=== PATIENT | male | born 1950 | race Caucasian/White ===

== ENCOUNTER 2021-01-02 22:07 | Emergency (ER) | payer OTHER ==
[~2021-01-02] VITALS: Ht 170.2 cm; Wt 90.9 kg
--- NOTE | 2021-01-02 22:10 | NUR ---
PT BIB [facility] FROM THE [employer] [facility] WHERE HE WAS GAMBLING AND DRINKING WITH HIS SON (ON A TRIP FROM [facility]), WHEN PT FELL OVER AND WAS UNRESPONSIVE. NO HEAD OR OTHER TRAUMA. PT BECAME RESPONSIVE UPON EMS ARRIVAL. PER SON, PT HAD 4 DRINKS TOTAL, STARTING IN THE AFTERNOON, AND "IT'S NOT MORE THAN HE WOULD NORMALLY HAVE". PT HAS HX HTN & DM. SON CONCERNED ABOUT POSSIBLE CARDIAC ETIOLOGY D/T FAMILY HX OF CARDIAC EVENTS. VSS PER EMS, EKG UNREMARKABLE, NO BLOOD SUGAR OBTAINED. PT ARRIVES TO ED A&OX3, INTOXICATED, VOMITING. C/O L ARM/SHOULDER PAIN X A COUPLE WEEKS.
[2021-01-02] MEDS ORDERED: ONDANSETRON 2MG/ML, 2ML ONE (22:26)
[2021-01-02] MEDS ORDERED: SODIUM CHLORIDE FLUSH 10ML SYR IVF ONE (22:30)
[2021-01-02] MEDS ORDERED: PLEASE ENTER ALLERGIES MC SCH (22:30)
[2021-01-02] MEDS ORDERED: ONDANSETRON 2MG/ML, 2ML IVPush ONE (22:30)
[2021-01-02] MEDS ORDERED: SODIUM CHLORIDE 0.9% 1,000ML IVBOLUS ONE (22:30)
[2021-01-02 22:38] LABS: BASOPHILS % (AUTO) 1 % (0-1); EOSINOPHILS % (AUTO) 4 % (1-7); LYMPHOCYTES % (AUTO) 29 % (22-44); MEAN CORPUSCULAR HEMOGLOBIN 26.6 pg (27.5-34.5); MEAN CORPUSCULAR HGB CONC 33.9 g/dL (33.2-36.2); MEAN PLATELET VOLUME 9.2 fL (7.4-10.4); MONOCYTES % (AUTO) 7 % (2-9); NEUTROPHILS % (AUTO) 60 % (42-75); PLATELET COUNT 213 x10^3/uL (130-400); RED BLOOD COUNT 5.62 x10^6/uL (4.38-5.82); RED CELL DISTRIBUTION WIDTH 13.8 % (9.4-14.8)
[2021-01-02 22:41] LABS: MD NO
[2021-01-02 22:49] LABS: ALANINE AMINOTRANSFERASE 32 U/L (12-78); ALBUMIN 4.5 g/dL (3.4-5.0); ANION GAP 14 mmol/L (5-15); CALCIUM 8.6 mg/dL (8.5-10.1); CHLORIDE 109 mmol/L (98-107); CREATININE 1.01 mg/dL (0.7-1.3)
[2021-01-02 22:53] LABS: ALKALINE PHOSPHATASE 108 U/L (45-117); BILIRUBIN,TOTAL 0.5 mg/dL (0.2-1.0); TOTAL PROTEIN 7.7 g/dL (6.4-8.2); TROPONIN I < 0.015 ng/mL (0.000-0.045)
[2021-01-02] MEDS ORDERED: PROMETHAZINE 25 MG/ML, 1ML IM ONE (23:00)
--- NOTE | 2021-01-02 23:20 | NUR ---
ERP WAS IN FOR RECHECK. PT AND SON [facility]
[2021-01-02] MEDS ORDERED: POTASSIUM CHLORIDE 20 MEQ TAB.ER.PRT PO ONE (23:30)
--- NOTE | 2021-01-02 23:30 | NUR ---
PT STOOD AT SIDE OF BED AND VOIDED IN URINAL WITH STAND BY ASSIST FROM SON.
[2021-01-02] MEDS ORDERED: POTASSIUM CHLORIDE 20 MEQ TAB.ER.PRT ONE (23:41)
[2021-01-02] MEDS ORDERED: PROMETHAZINE 25 MG/ML, 1ML ONE (23:41)
[2021-01-02 23:48] VITALS: BP 110/75
--- NOTE | 2021-01-02 23:50 | NUR ---
PT TOOK PO POTASSIUM WITH WATER WITHOUT DIFFICULTY. WILL LET REST OF IV BOLUS INFUSE, THEN DISCHARGE PT. SON REMAINS AT BS. PT UNDERSTANDS POC. Addendum: 01/02/21 at 2351 by HBENSON PT DENIES NAUSEA AT THIS TIME, REFUSED IM PHENERGAN.
--- NOTE | 2021-01-03 00:28 | NUR ---
D/C INSTRUCTIONS & F/U APPT RV'WD WITH PT AND SON. INSTRUCTED TO RETURN TO ED FOR ANY CONCERNING SYMPTOMS. PT AMBULATED OUT OF ED WITH SON WITHOUT DIFFICULTY.
== END 2021-01-03 00:33 | disposition home or self-care (01) ==
LOC: ED 01-03 00:32
DX: R55 Syncope and collapse (principal); F10.120 Alcohol abuse with intoxication, uncomplicated; R94.31 Abnormal electrocardiogram [ECG] [EKG]; R07.89 Other chest pain; I10 Essential (primary) hypertension; E11.9 Type 2 diabetes mellitus without complications; Y90.0 Blood alcohol level of less than 20 mg/100 ml
CPT/HCPCS: 36415; 70450; 71045; 80053; 80320; 82962; 84484; 85025; 93005; 96361; 96374; 99285; J2405; J7030; G0480